=== PATIENT | male | born 1950 | race Caucasian/White ===

== ENCOUNTER 2019-02-04 07:19 | Emergency (ER) | payer MEDICARE, OTHER ==
[~2019-02-04] VITALS: Ht 182.9 cm; Wt 74.8 kg
[~2019-02-04 07:19] MED LIST: ALBU2.5V8 INH; IBUP-1027 PO
[2019-02-04 07:27] VITALS: BP 159/87
--- NOTE | 2019-02-04 08:22 | RAD ---
ELBOW RIGHT 3V (AP, oblique, lateral) INDICATION: CHRONIC RIGHT ELBOW PAIN AFTER INJURY X6 MONTHS AGO COMPARISON: None. FINDINGS: No acute fracture or malalignment. Olecranon enthesophyte. The joint spaces are maintained. Bony mineralization is normal for the patient's age. No significant soft tissue abnormality. No radiopaque foreign body. IMPRESSION: 1. No acute fracture or malalignment. 2. Olecranon enthesophyte. If any bulging is felt on physical exam in the posterior elbow, it likely relates to this enthesophyte. Electronically signed by: Cy Gaines MD (02/04/2019 8:18 AM) [facility]
--- NOTE | 2019-02-04 08:23 | PHYS DOC ---
Past Medical History Past Medical History: Heart Disease Past Surgical History: Other Additional Past Surgical Histo: cardiac cath with stent, laprascopy of liver Alcohol Use: Occasionally Drug Use: None Adult General Chief Complaint Chief Complaint: ELBOW PROBLEM HPI HPI Patient is a 68 year old male who presents with elbow pain. Pt states he has right elbow pain since last August when he hit it on an entertainment center. The pain is located on the lateral side of the elbow. 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 The pain radiates into his fingers. He was taking ibuprofen for the pain, which helped for a little while. He then tried Aleve which did not help. Now he is taking aspirin, which is helping. He states alcohol helps dull the pain. He states he is currently homeless and needs a job. The pain is limiting his ability to work. He denies wanting anything for pain but would like to try a sling and rest. Denies any other medical conditions [] Review of Systems Review of Systems Constitutional: Denies fever or chills [] Eyes: Denies change in visual acuity, redness, or eye pain [] HENT: Denies nasal congestion or sore throat [] Respiratory: Denies cough or shortness of breath [] Cardiovascular: No additional information not addressed in HPI [] GI: Denies abdominal pain, nausea, vomiting, bloody stools or diarrhea [] : Denies dysuria or hematuria [] Musculoskeletal: Denies back pain or joint pain. Lateral right elbow pain. [] Integument: Denies rash or skin lesions [] Neurologic: Denies headache, focal weakness or sensory changes [] Endocrine: Denies polyuria or polydipsia [] All other systems were reviewed and found to be within normal limits, except as documented in this note. Allergies Allergies Allergies Coded Allergies Type Severity Reaction Last Updated Verified Sulfa (Sulfonamide Antibiotics) Allergy Intermediate 02/19/16 Yes Physical Exam Physical Exam Constitutional: Well developed, well nourished, no acute distress, non-toxic appearance. [] HENT: Normocephalic, atraumatic, bilateral external ears normal, oropharynx moist, no oral exudates, nose normal. [] Eyes: PERRLA, EOMI, conjunctiva normal, no discharge. [] Neck: Normal range of motion, no tenderness, supple, no stridor. [] Pulmonary: Normal respiratory effort no increased work of breathing no obvious chest wall trauma Skin: Warm, dry, no erythema, no rash. [] Back: No tenderness, no CVA tenderness. [] Extremities: No cyanosis, no clubbing, ROM intact, no edema. Right elbow pain and tenderness at radial head. No numbness or tingling. Full ROM [] Neurologic: Alert and oriented X 3, normal motor function, normal sensory function, no focal deficits noted. [] Psychologic: Affect normal, judgement normal, mood normal. [] Current Patient Data Vital Signs Vital Signs Date Time Temp Pulse Resp B/P (MAP) Pulse Ox O2 Delivery O2 Flow Rate FiO2 02/04/19 07:27 97.7 84 18 159/87 (111) 97 Room Air 97.7 EKG EKG [] Radiology/Procedures Radiology/Procedures [] Course & Med Decision Making Course & Med Decision Making Pertinent Labs and Imaging studies reviewed. (See chart for details) X-ray showed no fracture. Possible nerve impingement. Pt does not want any pain meds and would like to try a sling. []pt is homeless no insurance, encouraged him to do his best to obtain resources. offered smoe assistance he declined he has parents he needs to take care of and he wants to get a sling from a friend. Guera Disclaimer Guera Disclaimer This electronic medical record was generated, in whole or in part, using a voice recognition dictation system. Departure Departure Impression: Primary Impression: Elbow pain Disposition: HOME, SELF-CARE Condition: STABLE Referrals: NO PCP (PCP) HITESH KAY MD Feb 04, 2019 08:23
== END 2019-02-04 08:24 | disposition home or self-care (01) ==
LOC: ER 07:19
DX: M25.521 Pain in right elbow (principal); Z95.5 Presence of coronary angioplasty implant and graft; Z88.2 Allergy status to sulfonamides
CPT/HCPCS: 73080; 99283

== ENCOUNTER 2019-12-20 23:27 | Emergency (ER) | payer MEDICARE ==
[~2019-12-20] VITALS: Ht 182.9 cm; Wt 63.6 kg
--- NOTE | 2019-12-20 23:57 | PHYS DOC ---
Past Medical History Past Medical History: Heart Disease Past Surgical History: Other Additional Past Surgical Histo: cardiac cath with stent, laprascopy of liver Smoking Status: Current Every Day Smoker Alcohol Use: Occasionally Drug Use: None Adult General Chief Complaint Chief Complaint: COUGH HPI HPI 69-year-old male underlying history of COPD presents to the emergency Department complaints of cough, bright red blood with cough (hemoptysis). Patient states is been ongoing for the last hour. He describes smoking past one pack per day. He denies any home O2. 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 Patient denies any chest pain, nausea, vomiting, headache, visual change. He does drink alcohol. Patient denies any bright red blood per rectum or dark stools. Nothing makes his symptoms worse, nothing makes his symptoms better. Patient is on no blood thinning medications Review of Systems Review of Systems Constitutional: Denies fever or chills [] Respiratory: COUGH/Hemoptysis Cardiovascular: No additional information not addressed in HPI [] GI: Denies abdominal pain, nausea, vomiting, bloody stools or diarrhea [] Musculoskeletal: Denies back pain or joint pain [] Integument: Denies rash or skin lesions [] Neurologic: Denies headache, focal weakness or sensory changes [] All other systems were reviewed and found to be within normal limits, except as documented in this note. Current Medications Current Medications Current Medications Medications (Trade) Dose Ordered Sig/Hesham Start Time Stop Time Status Last Admin Dose Admin Info (CONTRAST GIVEN -- Rx MONITORING) 1 each PRN DAILY PRN 12/21/19 01:30 12/23/19 01:29 Iohexol (Omnipaque 350 Mg/ml) 90 ml 1X ONCE 12/21/19 01:30 12/21/19 01:31 DC Potassium Chloride (Klor-Con) 40 meq 1X ONCE 12/21/19 02:30 12/21/19 02:31 UNV Allergies Allergies Allergies Coded Allergies Type Severity Reaction Last Updated Verified Sulfa (Sulfonamide Antibiotics) Allergy Intermediate 02/19/16 Yes Physical Exam Physical Exam Constitutional: Well developed, well nourished, no acute distress, non-toxic appearance. [] Neck: Normal range of motion, no tenderness, supple, no stridor. [] Cardiovascular:Heart rate regular rhythm, no murmur [] Lungs & Thorax: decreased BS bilaterally Abdomen: Bowel sounds normal, soft, no tenderness, no masses, no pulsatile masses. [] Skin: Warm, dry, no erythema, no rash. [] Back: No tenderness, no CVA tenderness. [] Extremities: No tenderness, no edema. [] Neurologic: Alert and oriented X 3, no focal deficits noted. [] Psychologic: Affect normal, judgement normal, mood normal. [] Current Patient Data Vital Signs Vital Signs Date Time Temp Pulse Resp B/P (MAP) Pulse Ox O2 Delivery O2 Flow Rate FiO2 12/20/19 23:38 97.8 76 18 153/91 (111) 97 Room Air 97.8 Lab Values Laboratory Tests Test 12/21/19 00:10 White Blood Count 6.6 x10^3/uL (4.0-11.0) Red Blood Count 4.12 x10^6/uL (4.30-5.70) L Hemoglobin 13.4 g/dL (13.0-17.5) Hematocrit 39.5 % (39.0-53.0) Mean Corpuscular Volume 96 fL (79-100) Mean Corpuscular Hemoglobin 33 pg (25-35) Mean Corpuscular Hemoglobin Concent 34 g/dL (31-37) Red Cell Distribution Width 13.7 % (11.5-14.5) Platelet Count 198 x10^3/uL (140-400) Neutrophils (%) (Auto) 60 % (31-73) Lymphocytes (%) (Auto) 28 % (24-48) Monocytes (%) (Auto) 10 % (0-9) H Eosinophils (%) (Auto) 2 % (0-3) Basophils (%) (Auto) 1 % (0-3) Neutrophils # (Auto) 3.9 x10^3/uL (1.8-7.7) Lymphocytes # (Auto) 1.8 x10^3/uL (1.0-4.8) Monocytes # (Auto) 0.7 x10^3/uL (0.0-1.1) Eosinophils # (Auto) 0.1 x10^3/uL (0.0-0.7) Basophils # (Auto) 0.1 x10^3/uL (0.0-0.2) Prothrombin Time 12.6 SEC (11.7-14.0) Prothrombin Time INR 1.0 (0.8-1.1) D-Dimer (Cassidy) 0.44 ug/mlFEU (0.00-0.50) Sodium Level 142 mmol/L (136-145) Potassium Level 3.3 mmol/L (3.5-5.1) L Chloride Level 107 mmol/L (98-107) Carbon Dioxide Level 26 mmol/L (21-32) Anion Gap 9 (6-14) Blood Urea Nitrogen 8 mg/dL (8-26) Creatinine 0.6 mg/dL (0.7-1.3) L Estimated GFR (Cockcroft-Gault) 133.2 BUN/Creatinine Ratio 13 (6-20) Glucose Level 108 mg/dL (70-99) H Calcium Level 8.3 mg/dL (8.5-10.1) L Total Bilirubin 0.5 mg/dL (0.2-1.0) Aspartate Amino Transferase (AST) 18 U/L (15-37) Alanine Aminotransferase (ALT) 16 U/L (16-63) Alkaline Phosphatase 125 U/L (46-116) H Troponin I Quantitative < 0.017 ng/mL (0.000-0.055) FO-Xon-Y-Type Natriuretic Peptide 201 pg/mL (0-124) H Total Protein 6.3 g/dL (6.4-8.2) L Albumin 3.3 g/dL (3.4-5.0) L Albumin/Globulin Ratio 1.1 (1.0-1.7) Laboratory Tests 12/21/19 00:10 Laboratory Tests 12/21/19 00:10 EKG EKG [] Radiology/Procedures Radiology/Procedures [facility] [address] [place] [address] IMAGING REPORT Signed PATIENT: TELMA MOSES ACCOUNT: [id number] : 1950 LOCATION: ER AGE: 69 SEX: M EXAM STATUS: REG ER ORD. PHYSICIAN: DANIELLE WAGNER MD REASON: hemoptysis PROCEDURE: PORTABLE CHEST 1V EXAM: PORTABLE CHEST 1V INDICATION: Hemoptysis. TECHNIQUE: Single view COMPARISON: None FINDINGS: The heart size is normal. The great vessels appear unremarkable. There is no hilar or mediastinal mass. Lungs show subtle air bronchogram in the medial left lung base. Mild generalized interstitial prominence. There is no pleural effusion or pneumothorax. There are no significant osseous abnormalities. IMPRESSION: Possible early pneumonic infiltrate in the medial left lung base. Electronically signed by: Crow Preciado MD (12/21/2019 12:13 AM) [id number] DICTATED and SIGNED BY: CROW PRECIADO MD DATE: 12/21/19 0013 [] [facility] [address] [place] [address] IMAGING REPORT Signed PATIENT: TELMA MOSES ACCOUNT: [id number] : 1950 LOCATION: ER AGE: 69 SEX: M EXAM STATUS: REG ER ORD. PHYSICIAN: DANIELLE WAGNER MD REASON: hemoptysis, COPD, Tobacco PROCEDURE: CT ANGIOGRAPHY CHEST INDICATION: Hemoptysis COMPARISON: December 20, 2019 TECHNIQUE: Axial CT images obtained through the chest. Intravenous contrast utilized. Angiogram 3D images processed per protocol. One or more of the following individualized dose reduction techniques were utilized for this examination: 1. Automated exposure control; 2. Adjustment of the mA and/or kV according to patient size; 3. Use of iterative reconstruction technique. FINDINGS: Cystic changes of bilateral lungs. No evidence of pneumothorax. There are some patchy groundglass opacities bilaterally most severe at left lung base. Low-density adjacent to falciform ligament liver which is commonly from focal fat. Nodular thickening of the left adrenal gland which appears low density and could be from adenoma. Multiple bilateral renal lesions are partially seen with many of these appearing cystic in nature but incompletely characterized. Mediastinal lymphadenopathy. For example within the right hilar region measuring up to 16 mm short axis. Atherosclerotic disease. Coronary artery calcific atherosclerosis. No evidence of thoracic aortic aneurysm with portion of ascending thoracic aorta not well evaluated secondary to motion. No central pulmonary embolus with some limitation peripherally secondary to motion. Degenerative changes spine IMPRESSION: No central pulmonary embolus. Patchy groundglass opacities which could be infectious in nature. Another possible cause would include alveolar hemorrhage. Follow-up could be obtained to ensure this resolves to exclude neoplastic causes. Cystic changes the lungs which can be seen with chronic lung disease. Enlarged lymph nodes within the mediastinum. Could be reactive in nature but follow-up could be obtained to ensure these do not increase to exclude neoplastic causes Partial visualization of low-density lesions of the kidneys. Suspect that these are at least partially cystic but if more complete characterization is desired nonemergent ultrasound could further evaluate given that these are only partially seen and incompletely characterized Electronically signed by: Bakari Berry MD (12/21/2019 1:55 AM) [id number] DICTATED and SIGNED BY: BAKARI BERRY MD DATE: 12/21/19 0155 Course & Med Decision Making Course & Med Decision Making Pertinent Labs and Imaging studies reviewed. (See chart for details) []69-year-old male underlying history of COPD presents to the emergency Department complaints of cough, bright red blood with cough (hemoptysis). P atient states is been ongoing for the last hour. He describes smoking past one pack per day. He denies any home O2. 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 Patient denies any chest pain, nausea, vomiting, headache, visual change. He does drink alcohol. Patient denies any bright red blood per rectum or dark stools. Nothing makes his symptoms worse, nothing makes his symptoms better. Patient is on no blood thinning medications Labs, imaging reviewed Potassium mildly low at 3.3, BNP 201, troponin negative, INR 1.0 Dimer 0.44 within normal limits Revealed evidence of left medial consolidation, CT revealed no PE, groundglass appreciation with mediastinal lymph nodes no Mass appreciable examination, patient does state that lymph nodes are being followed at the [place]. Recommend antibiotic therapy to treat groundglass opacification and concern for infectious etiology, recommend follow with primary care physician at the [place] If symptoms worsen, patient can return to the emergency department. Rx provided for doxycycline BID x 7 days Dragon Disclaimer Dragon Disclaimer This electronic medical record was generated, in whole or in part, using a voice recognition dictation system. Departure Departure Impression: Primary Impression: Pneumonia Additional Impression: Hemoptysis Disposition: HOME, SELF-CARE Condition: STABLE Referrals: JOBY JOHN MD (PCP) Patient Instructions: Hemoptysis-Brief, Hypokalemia-Brief, Pneumonia, Adult, [id number] Additional Instructions: Return to ER with worsening symptoms Doxycycline 100mg BID x 7 days Labs unremarkable aside from low potassium replaced in the ER CT reviewed with patient, reactive LN present - being followed at [facility] Doxycycline Hyclate (DOXYCYCLINE HYCLATE) 100 Mg Capsule 1 CAP PO BID, #14 CAP Prov: DANIELLE WAGNER MD 12/21/19 Problem Qualifiers Primary Impression: Pneumonia Pneumonia type: due to unspecified organism Laterality: left Lung location: lower lobe of lung Qualified Codes: J18.9 - Pneumonia, unspecified organism DANIELLE WAGNER MD Dec 20, 2019 23:57
--- NOTE | 2019-12-21 00:16 | RAD ---
EXAM: PORTABLE CHEST 1V INDICATION: Hemoptysis. TECHNIQUE: Single view COMPARISON: None FINDINGS: The heart size is normal. The great vessels appear unremarkable. There is no hilar or mediastinal mass. Lungs show subtle air bronchogram in the medial left lung base. Mild generalized interstitial prominence. There is no pleural effusion or pneumothorax. There are no significant osseous abnormalities. IMPRESSION: Possible early pneumonic infiltrate in the medial left lung base. Electronically signed by: Thanh Preciado MD (12/21/2019 12:13 AM) [id number]
[2019-12-21 00:18] LABS: BASO # 0.1 x10^3/uL (0.0-0.2); BASO % 1 % (0-3); EOS # 0.1 x10^3/uL (0.0-0.7); EOS % 2 % (0-3); HEMATOCRIT 39.5 % (39.0-53.0); HEMOGLOBIN 13.4 g/dL (13.0-17.5); LYMPH # 1.8 x10^3/uL (1.0-4.8); LYMPH % 28 % (24-48); MEAN CORPUSCULAR HEMOGLOBIN 33 pg (25-35); MEAN CORPUSCULAR HGB CONC 34 g/dL (31-37); MEAN CORPUSCULAR VOLUME 96 fL (79-100); MONO # 0.7 x10^3/uL (0.0-1.1); MONO % 10 % (0-9); NEUT # 3.9 x10^3/uL (1.8-7.7); NEUT % 60 % (31-73); PLATELET COUNT 198 x10^3/uL (140-400); RED BLOOD COUNT 4.12 x10^6/uL (4.30-5.70); RED CELL DISTRIBUTION WIDTH 13.7 % (11.5-14.5); WHITE BLOOD COUNT 6.6 x10^3/uL (4.0-11.0)
[2019-12-21 00:28] LABS: CALCIUM 8.3 mg/dL (8.5-10.1); CREATININE 0.6 mg/dL (0.7-1.3); GFR 133.2; POTASSIUM 3.3 mmol/L (3.5-5.1)
[2019-12-21 00:34] LABS: ALBUMIN 3.3 g/dL (3.4-5.0); ALBUMIN/GLOBULIN RATIO 1.1 (1.0-1.7); TOTAL BILIRUBIN 0.5 mg/dL (0.2-1.0); TOTAL PROTEIN 6.3 g/dL (6.4-8.2)
[2019-12-21 01:02] LABS: PROTHROMBIN TIME PATIENT 12.6 SEC (11.7-14.0)
[2019-12-21] MEDS ORDERED: IOHEXOL 350 MG/ML 100 ML VIAL. IV ONE (01:30)
[2019-12-21] MEDS ORDERED: CONTRAST GIVEN. MC PRN (01:30)
--- NOTE | 2019-12-21 01:58 | RAD ---
INDICATION: Hemoptysis COMPARISON: December 20, 2019 TECHNIQUE: Axial CT images obtained through the chest. Intravenous contrast utilized. Angiogram 3D images processed per protocol. One or more of the following individualized dose reduction techniques were utilized for this examination: 1. Automated exposure control; 2. Adjustment of the mA and/or kV according to patient size; 3. Use of iterative reconstruction technique. FINDINGS: Cystic changes of bilateral lungs. No evidence of pneumothorax. There are some patchy groundglass opacities bilaterally most severe at left lung base. Low-density adjacent to falciform ligament liver which is commonly from focal fat. Nodular thickening of the left adrenal gland which appears low density and could be from adenoma. Multiple bilateral renal lesions are partially seen with many of these appearing cystic in nature but incompletely characterized. Mediastinal lymphadenopathy. For example within the right hilar region measuring up to 16 mm short axis. Atherosclerotic disease. Coronary artery calcific atherosclerosis. No evidence of thoracic aortic aneurysm with portion of ascending thoracic aorta not well evaluated secondary to motion. No central pulmonary embolus with some limitation peripherally secondary to motion. Degenerative changes spine IMPRESSION: No central pulmonary embolus. Patchy groundglass opacities which could be infectious in nature. Another possible cause would include alveolar hemorrhage. Follow-up could be obtained to ensure this resolves to exclude neoplastic causes. Cystic changes the lungs which can be seen with chronic lung disease. Enlarged lymph nodes within the mediastinum. Could be reactive in nature but follow-up could be obtained to ensure these do not increase to exclude neoplastic causes Partial visualization of low-density lesions of the kidneys. Suspect that these are at least partially cystic but if more complete characterization is desired nonemergent ultrasound could further evaluate given that these are only partially seen and incompletely characterized Electronically signed by: West Ledesma MD (12/21/2019 1:55 AM) [id number]
[2019-12-21] MEDS ORDERED: DOXY100C2 PO (02:26)
[2019-12-21] MEDS ORDERED: POTASSIUM CHLORIDE 20 MEQ TABLET.ER. PO ONE (02:30)
[2019-12-21 02:34] VITALS: BP 156/82
== END 2019-12-21 02:45 | disposition home or self-care (01) ==
LOC: ER 23:27
DX: J18.9 Pneumonia, unspecified organism (principal); R04.2 Hemoptysis; F17.200 Nicotine dependence, unspecified, uncomplicated; Z95.5 Presence of coronary angioplasty implant and graft; Z86.79 Personal history of other diseases of the circulatory system; Z88.2 Allergy status to sulfonamides
CPT/HCPCS: 36415; 71045; 71275; 80053; 83880; 84484; 85025; 85379; 85610; 99285-25